=== PATIENT | male | born 1970 | race Caucasian/White ===

== ENCOUNTER 2017-05-21 09:48 | Emergency (ER) | payer BC ==
[2017-05-21] MEDS ORDERED: HYDROmorphone 2 MG/ML Syringe IM STA (10:08)
[2017-05-21] MEDS ORDERED: HYDROmorphone 2 MG/ML Syringe ONE (10:12)
--- NOTE | 2017-05-21 10:13 | EDM.PDOC ---
ED HPI GENERAL MEDICAL PROBLEM - General Stated Complaint: PAIN FROM FALL DOWN STAIRS Time Seen by Provider: 05/21/17 10:00 Source of Information: Reports: Patient History Limitations: Reports: No Limitations - History of Present Illness INITIAL COMMENTS - FREE TEXT/NARRATIVE: According [facility] [place]. He is staying in a resort in town, was coming down the stairs at 1 am today morning and accidentally slipped and fell on his left side and his his chest wall against the stairs and hurts. he went to bed. He woke up with severe pain in his left chest. Point to the left lower chest. Rates his pain at 8/10. Hurts to take deep breaths. No wheezing or shortness of breath. No cough. No fever or chills. Onset: Today Onset Date: 05/21/17 Onset Time: 01:00 Location: Reports: Chest Quality: Reports: Ache Severity: Severe Improves with: Reports: Rest Worsens with: Reports: Breathing, Movement Context: Reports: Trauma Associated Symptoms: Reports: Chest Pain. Denies: Confusion, Cough, Diaphoresis , Fever/Chills, Headaches, Loss of Appetite, Nausea/Vomiting, Rash, Seizure, Shortness of Breath, Syncope, Weakness - Related Data Allergies Allergy/AdvReac Type Severity Reaction Status Date / Time No Known Allergies Allergy Verified 05/21/17 10:02 Home Meds: Home Meds Aspirin 81 mg PO DAILY 05/21/17 [History] Omeprazole Magnesium [Prilosec] 05/21/17 [History] amLODIPine [Norvasc] 10 mg PO 05/21/17 [History] metFORMIN [Glucophage] 500 mg PO BIDMEALS 05/21/17 [History] ED ROS GENERAL - Review of Systems Review Of Systems: See Below Constitutional: Denies: Fever, Chills HEENT: Denies: Ear Pain, Eye Pain, Rhinitis, Throat Pain Respiratory: Reports: Pleuritic Chest Pain. Denies: Shortness of Breath, Wheezing, Cough, Sputum Cardiovascular: Denies: Chest Pain, Lightheadedness GI/Abdominal: Denies: Abdominal Pain, Distension, Nausea, Vomiting Musculoskeletal: Denies: Joint Pain, Joint Swelling Skin: Denies: Pruritis, Rash, Erythema Neurological: Denies: Confusion, Dizziness, Headache, Numbness, Tingling Psychiatric: Denies: Agitation, Anxiety ED EXAM, GENERAL - Physical Exam Exam: See Below Exam Limited By: No Limitations General Appearance: Alert, WD/WN, Moderate Distress, Other (breath smell sof alcohol) Eye Exam: Bilateral Eye: EOMI, PERRL Ears: Normal External Exam, Normal Canal, Hearing Grossly Normal, Normal TMs Ear Exam: Bilateral Ear: Auricle Normal, Canal Normal, TM normal Nose: Normal Inspection, Normal Mucosa, No Blood Throat/Mouth: Normal Inspection, Normal Lips, Normal Teeth, Normal Gums, Normal Oropharynx, Normal Voice, No Airway Compromise Head: Atraumatic, Normocephalic Neck: Normal Inspection, Supple, Non-Tender, Full Range of Motion Respiratory/Chest: No Respiratory Distress, Lungs Clear, Normal Breath Sounds, No Accessory Muscle Use, Other (Pt is very tender over the left lower lateral chest. no crepitus felt.). No: Pleural Rub Course - Vital Signs Text/Narrative:: Pt's left rib series does shows left 6th rib undisplaced fracture posterolaterally. Pt reassured that he has one rib fracture, which is the cause of his pain. No pneumo or hemothorax associated with the trauma. Pt did receive diluatid 1mg Im in the emergency room. I have reassured that the rib should heal without complication. Needs good pain control. Advised to alternate vicodin 5/325 1-2 tabs with motrin 800mg every 4 hrs for pain control.Deep breathing exercises 3-4 times daily to prevent lung collapse and secondary infection. Avoid alcohol to prevent another fall. Pt advised to followup with his PCP in [place] when back home. Last Recorded V/S: Last Vital Signs Temp 96.9 F 05/21/17 10:28 Pulse 97 05/21/17 10:28 Resp 20 05/21/17 10:28 BP 129/79 05/21/17 10:28 Pulse Ox 97 05/21/17 10:28 - Orders/Labs/Meds Orders: Active Orders 24 hr Category Date Time Status Ribs 2V wo Chest Lt [CR] Stat Exams 05/21/17 10:23 Taken Meds: Medications Discontinued Medications Generic Name Dose Route Start Last Admin Trade Name Freq PRN Reason Stop Dose Admin Hydromorphone HCl 1 mg 05/21/17 10:08 05/21/17 10:27 Dilaudid IM 05/21/17 10:09 1 mg ONETIME STA Administration Hydromorphone HCl Confirm 05/21/17 10:12 Dilaudid Administered 05/21/17 10:13 Dose 2 mg .ROUTE .STK-MED ONE Departure - Departure Time of Disposition: 11:00 Disposition: Home, Self-Care 01 Condition: Fair Clinical Impression: Rib fracture - Discharge Information Referrals: PCP,None [Primary Care Provider] - - Problem List & Annotations (1) Rib fracture SNOMED Code(s): 70703497 Code(s): S22.39XA - FRACTURE OF ONE RIB, UNSP SIDE, INIT FOR CLOS FX Status : Acute Current Visit: Yes - Problem List Review Problem List Initiated/Reviewed/Updated: Yes - My Orders Last 24 Hours: My Active Orders 05/21/17 10:23 Ribs 2V wo Chest Lt [CR] Stat - Assessment/Plan Last 24 Hours: My Active Orders 05/21/17 10:23 Ribs 2V wo Chest Lt [CR] Stat Assessment:: Traumatic left 6th rib fracture Plan: Pt's left rib series does shows left 6th rib undisplaced fracture posterolaterally. Pt reassured that he has one rib fracture, which is the cause of his pain. No pneumo or hemothorax associated with the trauma. Pt did receive diluatid 1mg Im in the emergency room. I have reassured that the rib should heal without complication. Needs good pain control. Advised to alternate vicodin 5/325 1-2 tabs with motrin 800mg every 4 hrs for pain control.Deep breathing exercises 3-4 times daily to prevent lung collapse and secondary infection. Avoid alcohol to prevent another fall. Pt advised to followup with his PCP in [place] when back home.
--- NOTE | 2017-05-21 11:15 | CR ---
DATE OF SERVICE: 05/21/17 CLINICAL DATA: Fall with left lateral chest pain LEFT RIBS: There is a lucency through the right 6th rib anteriorly suspicious for a nondisplaced fracture. No other rib abnormalities. There are atelectatic changes in the right lung base. No pneumothorax. No pleural effusion. [id number] [facility]
== END 2017-05-21 10:45 | disposition home or self-care (01) ==
LOC: LB.ED 09:48
DX: S22.39XA Fracture of one rib, unspecified side, initial encounter for closed fracture (principal); Z79.82 Long term (current) use of aspirin; Z79.899 Other long term (current) drug therapy; W10.9XXA Fall (on) (from) unspecified stairs and steps, initial encounter
CPT/HCPCS: 71100; 96372; 99284; J1170